=== PATIENT | male | born 1975 | race Caucasian/White ===

== ENCOUNTER 2017-01-04 23:48 | Inpatient (IN) ==
--- NOTE | 2017-01-05 09:49 | Internal Med History&Physical ---
Date of Encounter: 01/05/17 Time of Encounter: 09:46 Assessment and Plan (1) Toxic encephalopathy Status: Resolved Urine drug screen positive for cocaine and Amphetamines; however patient claims he cannot remember the last use; received IV hydration, IV Narcan drip and supportive care; currently at baseline mental status and medically stable; (2) IRISH (acute kidney injury) Status: Resolved Likely due to the use of cocaine along with dehydration. Serum creatinine noted to be improving with IV hydration. (3) Acute respiratory failure with hypoxia Status: Resolved Due to altered mental status and drug overdose. Noted to be improving. Continue supplemental oxygen and wean down FiO2 as tolerated. Chest x-ray shows no evidence of pneumonia. (4) Drug overdose Status: Acute Patient has known history of polysubstance abuse and possibly overdosed on cocaine and amphetamines yesterday. Improved mentation at this time. Qualifiers: Encounter type: subsequent encounter Injury intent: accidental or unintentional Qualified Code(s): T50.901D - Poisoning by unspecified drugs, medicaments and biological substances, accidental (unintentional), subsequent encounter Internal Medicine - H&P: HPI Chief complaint: Altered mental status, found unresponsive Admitted From: Emergency Dept Plans for Post Hospital Care: Home History of present illness: Mr. Wayne is a 41 year old male with no significant past medical history was brought in by the police, apparently after being found unresponsive in his car with recreational drugs around. Patient has been admitted to our ICU last night under a different identity (different name and date of ) and has been started on IV hydration, supplemental oxygen and supportive care. He is significantly improved today and reports his correct name and date of and is in generally oriented. He reports some sternal pain, likely due to sternal rubs last night. No shortness of breath, palpitations, dizziness, nausea or vomiting. Denies any further complaints and would like to be discharged. Patient was noted to have positive cocaine and methamphetamines on urine drug screen and he admits to using these, however continues to deny using them yesterday and cannot remember if he was driving yesterday and how he ended up in the hospital. Past Med Surg Social Fam HX - Past Medical History Medical history: no medical history, non-contributory Psychiatric history: no psych history - Past Surgical History Surgical History: sinus surgery - Social History Smoking Status: Current every day smoker Packs per day: 1/2 pack per day for atleast 30yrs Smokeless Tobacco Status: No Alcohol use: occasionally (at least 3 times/week) Drug use: cocaine, methamphetamine, IVDU (cocaine) Occupational status: unemployed Current living situation: Home Activity Level: Independent ambulation Recent Out of Country Travel Within the Last 8 Weeks: No Exposure or Possible Exposure to Illness During Travel: No - Family History Mother Cause of : cancer Hx Family Cancer: Yes (unknown primary) Grandfather Hx Family Cardiac Disorders: Yes Internal Medicine - H&P: Meds Fluconazole [Diflucan] 150 mg PO ONCE #2 tablet 10/13/15 [Rx] Mupirocin [Bactroban Oint] 22 gm TP BID #22 tube 10/13/15 [Rx] PredniSONE [Deltasone] 20 mg PO DAILY #12 tablet 10/13/15 [Rx] Allergies sulfamethoxazole [From Bactrim] Allergy (Verified 10/13/15 20:21) Rash trimethoprim [From Bactrim] Allergy (Verified 10/13/15 20:21) Rash All Systems PM: A 10-system review of systems was performed and is negative for pertinent findings except as documented above in the HPI. - Constitutional Constitutional: no chills, no fever(s), no night sweats - EENT Eyes: no change in vision, no discharge, no pain, no photophobia Ears: no ear discharge, no ear pain, no tinnitus Nose, mouth and throat: no dysphagia, no nasal discharge, no neck pain, no sore throat - Cardiovascular Cardiovascular ROS IM: chest pain (reproducible chest pain, likely from sternal rubs), no diaphoresis, no dyspnea, no lightheadedness, no palpitations, no syncope - Respiratory Respiratory: no cough, no dyspnea, no wheezing, no excessive phlegm production - Gastrointestinal Gastrointestinal: no abdominal pain, no diarrhea, no hematemesis, no hematochezia, no melena, no nausea, no vomiting - Musculoskeletal Musculoskeletal ROS IM: no numbness, no tingling - Integumentary Integumentary IM: no rash, no unusual bruising - Neurological Neurological ROS: memory loss, no confusion, no convulsions, no focal weakness, no numbness, no tingling, no tremor(s) - Hematologic/Lymphatic Hematologic/Lymphatic: no easy bruising - Constitutional General appearance: Present: A&O X 3, answers questions appropriately - Head Head exam: Present: atraumatic, normocephalic - Neck Neck exam general surgery: Present: supple, trachea midline. Absent: lymphadenopathy - Respiratory Respiratory exam: Present: CTAB. Absent: accessory muscle use, rales, rhonchi, wheezes - Cardiovascular Cardiovascular exam: Present: RRR, +S1, +S2. Absent: diastolic murmur, gallop, rubs, systolic murmur - GI/Abdominal GI/Abdominal exam: Present: normal bowel sounds, soft, no peritoneal signs. Absent: distended, tenderness - Extremities Exam Extremities exam: Present: full ROM, warm, radial pulses palpable and symetrical. Absent: calf tenderness, cyanotic, pedal edema - Neurological Exam Neurological exam: Present: CN II-XII intact, oriented X3 (not completely oriented to date and month but appropriate year, place and person), no focal deficits. Absent: pronater drift, facial droop, speech deficit - Skin Skin exam: Present: dry, intact Internal Med - H&P Results - Labs CBC & Chem 7: 01/04/17 23:58 01/05/17 02:56
--- NOTE | 2017-01-05 09:56 | Discharge Summary ---
Date of Encounter: 01/05/17 Time of Encounter: 09:54 - Discharge Diagnosis (1) Toxic encephalopathy Priority: Primary Status: Resolved (2) IRISH (acute kidney injury) Priority: Primary Status: Resolved (3) Acute respiratory failure with hypoxia Priority: Primary Status: Resolved (4) Drug overdose Priority: Primary Status: Acute Qualifiers: Encounter type: subsequent encounter Injury intent: accidental or unintentional Qualified Code(s): T50.901D - Poisoning by unspecified drugs, medicaments and biological substances, accidental (unintentional), subsequent encounter - Discharge Medications Home Medications: Fluconazole [Diflucan] 150 mg PO ONCE #2 tablet 10/13/15 [Rx] Mupirocin [Bactroban Oint] 22 gm TP BID #22 tube 10/13/15 [Rx] PredniSONE [Deltasone] 20 mg PO DAILY #12 tablet 10/13/15 [Rx] Allergies/Adverse Reactions: Allergies sulfamethoxazole [From Bactrim] Allergy (Verified 10/13/15 20:21) Rash trimethoprim [From Bactrim] Allergy (Verified 10/13/15 20:21) Rash Date of admission: 01/05/17 09:14 Primary care physician: PCP NO Discharging clinician: Anum Morrow Anticipated date of discharge: 01/05/17 - Patient Status Disposition: Home, Self-Care Condition: Good Functional capacity at discharge: independent ambulation Overall status at discharge: patient is progressing back to baseline - Discharge Instructions - Diet and Activity Activity: resume usual activities as tolerated Diet: low fat, low cholesterol Hospital course: Mr. Wayne is a 41 year old male with no significant past medical history except polysubstance abuse and no medical follow-up, was admitted after being found unresponsive with drugs around. Urine drug screen was positive for cocaine and amphetamines. He was started on aggressive IV hydration along with supplemental oxygen and IV Narcan drip. He was also noted to have acute kidney injury likely due to dehydration and use of illicit drugs; serum creatinine is noted to normalize this morning. He was also noted to have minimal troponin leak, likely cocaine induced. Telemetry monitoring showed no arrhythmias and repeat troponin shows no significant elevation. Patient's mental status is much improved and is back to baseline today and he denies any complaints. He remains hemodynamically stable and no longer requiring supplemental oxygen and he is medically stable for discharge. Time spent discussing smoking cessation with patient: 3 to 10 minutes (3 min) - Time Spent with Patient Total time spent providing and/or coordinating discharge services: Greater than 30 minutes (45 min) - Constitutional General appearance: Present: A&O X 3, answers questions appropriately - Respiratory Respiratory exam: Present: CTAB. Absent: accessory muscle use, rales, rhonchi, wheezes - Cardiovascular Cardiovascular exam: Present: RRR, +S1, +S2. Absent: diastolic murmur, gallop, rubs, systolic murmur
[2017-01-05 10:15] VITALS: BP 107/66
[2017-01-05] MEDS ORDERED: Thiamine (B-1) 100 MG TABLET PO ONE (12:14)
[2017-01-05] MEDS ORDERED: *HR* LORazepam 2 MG/ML VIAL IVP ONE (12:14)
[2017-01-05] MEDS ORDERED: Nystatin SUSP 5 ML UD.LIQ PO ONE (12:14)
[2017-01-05] MEDS ORDERED: Ipratropium/Albuterol Neb 3 ML AER ONE (12:14)
[2017-01-05] MEDS ORDERED: Sennosides 8.6 MG TABLET PO ONE (12:14)
[2017-01-05] MEDS ORDERED: Vitamin B Complex/Vit C/Vit E 1 EACH TABLET PO ONE (12:14)
[2017-01-05] MEDS ORDERED: *HR* Promethazine 25 MG/ML VIAL IV ONE (12:14)
[2017-01-05] MEDS ORDERED: Acetaminophen 650 MG RECTAL SUPP RC ONE (12:14)
[2017-01-05] MEDS ORDERED: Ondansetron 4 MG/2 ML VIAL IVP ONE (12:14)
[2017-01-05] MEDS ORDERED: Folic Acid 1 MG TABLET PO ONE (12:14)
[2017-01-05] MEDS ORDERED: Acetaminophen 325 MG TABLET PO ONE (12:14)
[2017-01-05] MEDS ORDERED: Metoclopramide 10 MG/2 ML VIAL IVP ONE (12:14)
[2017-01-05] MEDS ORDERED: 0.9 % Sodium Chloride 1,000 ML IV.SOLN IV ONE ×3 (12:14)
[2017-01-05] MEDS ORDERED: Pantoprazole 40 MG VIAL IVC ONE (12:14)
--- NOTE | 2017-01-05 16:47 | Electrocardiograph Report ---
[address] [address] Test Date: 2017-01-05 Pat Name: Xavier Wayne Department: 104 Room: 02 Gender: M Admitting Representative: OP : 1975 Requested By: Derek Rodriguez Order Number: [id number] Reading MD: Thi Hobbs Measurements Intervals [place] Rate: 81 P: 38 TX: 144 QRS: -12 QRSD: 88 T: 54 QT: 393 QTc: 430 Interpretive Statements SINUS RHYTHM V6 not suitable for interpretation Electronically Signed On 01-05-2017 16:45:58 EDT by Thi Hobbs
[2017-01-05 19:28] LABS: Hematocrit 51.1 % (37.5-50.1); Hemoglobin 17.4 g/dL (12.9-16.9); Mean Corpuscular HGB Conc 34.1 g/dL (31.6-35.5); Mean Corpuscular Hemoglobin 31.2 pg (28.0-33.3); Mean Corpuscular Volume 91.6 fL (83.0-100.0); Mean Platelet Volume 8.6 fL (9.4-12.4); Platelet Count 229 K/mcL (140-400); Red Blood Count 5.58 M/mcL (4.19-5.50); Red Cell Distribution Width 12.6 % (11.5-14.5)
[2017-01-05 19:29] LABS: Basophils % 0.3 %; Eosinophils # 0.1 K/mcL (0.0-0.6); Eosinophils % 0.5 %; Immature Granulocytes % 0.5 % (0-4); Lymphocytes # 0.7 K/mcL (0.6-4.6); Lymphocytes % 7.2 %; Monocytes # 0.3 K/mcL (0.0-1.3); Monocytes % 3.1 %; Neutrophils # 8.8 K/mcL (1.6-8.9); Segmented Neutrophils % 88.4 %
[2017-01-05 19:38] LABS: Activated Partial Thrombo Time 27.8 Seconds (26.0-36.0); INR 1.1; Prothrombin Time 12.3 Seconds (9.4-12.1)
[2017-01-05 19:42] LABS: Amphetamine Screen,Urine Positive ng/mL (Cutoff=1000); Barbiturate Screen,Urine Negative ng/mL (Cutoff=200); Benzodiazepines Screen,Urine Negative ng/mL (Cutoff=200); Cannabinoid Screen,Urine Negative ng/mL (Cutoff = 50); Cocaine Screen,Urine Positive ng/mL (Cutoff= 300); Opiate Screen,Urine Negative ng/mL (Cutoff=300); Phencyclidine Screen,Urine Negative ng/mL (Cutoff=25)
[2017-01-05 20:58] LABS: ABG PCO2 53 mmHg (35-45); ABG PO2 66 mmHg (85-104)
[2017-01-05 20:59] LABS: ABG Base Excess -1.4 mEq/L (-2.0 to 3.0); ABG HCO3 26.1 mEQ/L (21-27); ABG Oxygen Saturation 90 % (95-98); ABG TCO2 27.7 mEq/L (20-26); Blood Gas FiO2 100 %
[2017-01-05 21:14] LABS: Alkaline Phosphatase 58 Units/L (38-126); BUN/Creatinine Ratio 7 (6-26); Bilirubin,Direct 0.7 mg/dL (0.0-0.5); Bilirubin,Indirect 0.5 mg/dL (0.0-1.2); Bilirubin,Total 1.2 mg/dL (0.2-1.2); Blood Urea Nitrogen 13 mg/dL (8-26); Calcium 8.9 mg/dL (8.6-10.8); Carbon Dioxide 23 mEq/L (19-29); Chloride 99 mEq/L (98-109); Glucose 324 mg/dL (70-99); Osmolality,Calculated 297 (280-300); Potassium 3.6 mEq/L (3.5-4.5); Sodium 137 mEq/L (136-145); eGFR For African Americans 50 (> 60); eGFR For Non-African Americans 41 (> 60)
[2017-01-05 21:15] LABS: Acetaminophen < 1.0 mcg/mL (10-30); Alanine Aminotransferase 62 Units/L (0-55); Albumin 4.1 g/dL (3.5-5.0); Albumin/Globulin Ratio 1.1 (1.1-2.2); Aspartate Amino Transferase 57 Units/L (5-34); Creatine Kinase 269 Units/L (30-200); Ethanol < 10 mg/dL (0-10); Globulin 3.6 g/dL (2.4-3.5); Salicylate < 5.0 mg/dL (15-30); Total Protein 7.7 g/dL (6.0-8.3)
[2017-01-05 21:27] LABS: ABG Base Excess 0.9 mEq/L (-2.0 to 3.0); ABG HCO3 28.7 mEQ/L (21-27); ABG Oxygen Saturation 94 % (95-98); ABG PCO2 57 mmHg (35-45); ABG PH 7.31 pH Units (7.32-7.45); ABG PO2 77 mmHg (85-104); ABG TCO2 30.4 mEq/L (20-26); Blood Gas FiO2 28 %
[2017-01-05 21:38] LABS: BUN/Creatinine Ratio 10 (6-26); Bilirubin,Total 1.3 mg/dL (0.2-1.2); Blood Urea Nitrogen 13 mg/dL (8-26); Carbon Dioxide 24 mEq/L (19-29); Chloride 105 mEq/L (98-109); Glucose 73 mg/dL (70-99); Magnesium 2.4 mg/dL (1.6-2.6); Osmolality,Calculated 291 (280-300); Phosphorous 3.6 mg/dL (2.3-4.7); Potassium 3.5 mEq/L (3.5-4.5); Sodium 141 mEq/L (136-145); eGFR For African Americans > 60 (> 60); eGFR For Non-African Americans > 60 (> 60)
[2017-01-05 21:39] LABS: Alanine Aminotransferase 57 Units/L (0-55); Albumin 4.1 g/dL (3.5-5.0); Albumin/Globulin Ratio 1.4 (1.1-2.2); Alkaline Phosphatase 53 Units/L (38-126); Aspartate Amino Transferase 50 Units/L (5-34); Bilirubin,Direct 0.9 mg/dL (0.0-0.5); Bilirubin,Indirect 0.4 mg/dL (0.0-1.2); Total Protein 7.1 g/dL (6.0-8.3)
--- NOTE | 2017-01-12 11:11 | Emergency Department Note ---
Disposition Clinical Impression: Acute kidney injury, Lactic acid acidosis Overdose Qualifiers: Encounter type: initial encounter Injury intent: accidental or unintentional Qualified Code(s): T50.901A - Poisoning by unspecified drugs, medicaments and biological substances, accidental (unintentional), initial encounter Altered mental status Qualifiers: Altered mental status type: unspecified Qualified Code(s): R41.82 - Altered mental status, unspecified Disposition: Admitted As Inpatient Condition: Good Time of Disposition: 13:02 General Adult HPI - General Chief complaint: ED Overdose Source: EMS - History of Present Illness Pain Scale: 0 - Related Data Previous Rx's Medication Instructions Recorded Fluconazole [Diflucan] 150 mg PO ONCE #2 tablet 10/13/15 Mupirocin [Bactroban Oint] 22 gm TP BID #22 tube 10/13/15 PredniSONE [Deltasone] 20 mg PO DAILY #12 tablet 10/13/15 Allergies Allergy/AdvReac Type Severity Reaction Status Date / Time sulfamethoxazole Allergy Rash Verified 10/13/15 20:21 [From Bactrim] trimethoprim [From Bactrim] Allergy Rash Verified 10/13/15 20:21 Past Medical History - Past Medical History Medical history: Reports: no medical history, non-contributory Surgical history: Reports: sinus surgery Psychiatric history: Reports: no psych history - Social History Smoking Status: Current every day smoker Smokeless Tobacco Status: No Alcohol use: Reports: occasionally (at least 3 times/week) Drug use: Reports: cocaine, methamphetamine, IVDU (cocaine) Physical Exam - General General appearance: lethargic Course Vital Signs Temperature 97.3 F L 01/04/17 23:49 Pulse Rate 80 01/04/17 23:49 Respiratory Rate 18 01/04/17 23:49 Blood Pressure 107/66 01/04/17 23:49 O2 Sat by Pulse Oximetry 99 01/04/17 23:49 Temperature 97.3 F L 01/05/17 10:00 Pulse Rate 80 01/05/17 10:00 Respiratory Rate 18 01/05/17 10:00 Blood Pressure 107/66 01/05/17 10:00 O2 Sat by Pulse Oximetry 99 01/05/17 10:00 Oxygen Delivery Oxygen Delivery Non Rebreather Mask Medical Decision Making - Lab Data Result diagrams: 01/04/17 23:58 01/05/17 02:56 Lab Results 01/04/17 01/04/17 01/04/17 Range/Units 23:54 23:55 23:55 WBC (4.3-11.1) K/mcL RBC (4.19-5.50) M/mcL Hgb (12.9-16.9) g/dL Hct (37.5-50.1) % MCV (83.0-100.0) fL MCH (28.0-33.3) pg MCHC (31.6-35.5) g/dL RDW (11.5-14.5) % Plt Count (140-400) K/mcL MPV (9.4-12.4) fL Immature Gran % (0-4) % Seg Neutrophils % % Lymphocytes % % Monocytes % % Eosinophils % % Basophils % % Neutrophils # (1.6-8.9) K/mcL Lymphocytes # (0.6-4.6) K/mcL Monocytes # (0.0-1.3) K/mcL Eosinophils # (0.0-0.6) K/mcL Basophils # (0.0-0.2) K/mcL PT (9.4-12.1) Seconds INR APTT (26.0-36.0) Seconds ABG pH 7.30 L (7.32-7.45) pH Units ABG pCO2 53 H (35-45) mmHg ABG pO2 66 L (85-104) mmHg ABG HCO3 26.1 (21-27) mEQ/L ABG Total CO2 27.7 H (20-26) mEq/L ABG O2 Saturation 90 L (95-98) % ABG Base Excess -1.4 (-2.0 to 3.0) mEq/L Blood Gas Modality NRB Inspired O2 100 % Sodium (136-145) mEq/L Potassium (3.5-4.5) mEq/L Chloride (98-109) mEq/L Carbon Dioxide (19-29) mEq/L BUN (8-26) mg/dL Creatinine (0.72-1.25) mg/dL Est GFR ( Amer) (> 60) Est GFR (Non-Af Amer) (> 60) BUN/Creatinine Ratio (6-26) Glucose (70-99) mg/dL POC Glucose (58-89) Calculated Osmolality (280-300) Lactic Acid 4.2 H* (0.5-2.2) mmol/L Calcium (8.6-10.8) mg/dL Total Bilirubin (0.2-1.2) mg/dL Direct Bilirubin (0.0-0.5) mg/dL Indirect Bilirubin (0.0-1.2) mg/dL AST (5-34) Units/L ALT (0-55) Units/L Alkaline Phosphatase (38-126) Units/L Creatine Kinase (30-200) Units/L Serum Total Protein (6.0-8.3) g/dL Albumin (3.5-5.0) g/dL Globulin (2.4-3.5) g/dL Albumin/Globulin Ratio (1.1-2.2) Procalcitonin 0.28 H (<=0.10) ng/mL Salicylates (15-30) mg/dL Urine Opiates Screen (Zoggtt=557) ng/mL Acetaminophen (10-30) mcg/mL Ur Barbiturates Screen (Iekutw=951) ng/mL Ur Phencyclidine Scrn (Cutoff=25) ng/mL Ur Amphetamines Screen (Dtgzke=4328) ng/mL U Benzodiazepines Scrn (Kquqqm=390) ng/mL Urine Cocaine Screen (Cutoff= 300) ng/mL U Marijuana (THC) Screen (Cutoff = 50) ng/mL Ethyl Alcohol (0-10) mg/dL 01/04/17 01/04/17 01/04/17 Range/Units 23:58 23:58 23:58 WBC 9.9 (4.3-11.1) K/mcL RBC 5.58 H (4.19-5.50) M/mcL Hgb 17.4 H (12.9-16.9) g/dL Hct 51.1 H (37.5-50.1) % MCV 91.6 (83.0-100.0) fL MCH 31.2 (28.0-33.3) pg MCHC 34.1 (31.6-35.5) g/dL RDW 12.6 (11.5-14.5) % Plt Count 229 (140-400) K/mcL MPV 8.6 L (9.4-12.4) fL Immature Gran % 0.5 (0-4) % Seg Neutrophils % 88.4 % Lymphocytes % 7.2 % Monocytes % 3.1 % Eosinophils % 0.5 % Basophils % 0.3 % Neutrophils # 8.8 (1.6-8.9) K/mcL Lymphocytes # 0.7 (0.6-4.6) K/mcL Monocytes # 0.3 (0.0-1.3) K/mcL Eosinophils # 0.1 (0.0-0.6) K/mcL Basophils # 0.0 (0.0-0.2) K/mcL PT 12.3 H (9.4-12.1) Seconds INR 1.1 APTT 27.8 (26.0-36.0) Seconds ABG pH (7.32-7.45) pH Units ABG pCO2 (35-45) mmHg ABG pO2 (85-104) mmHg ABG HCO3 (21-27) mEQ/L ABG Total CO2 (20-26) mEq/L ABG O2 Saturation (95-98) % ABG Base Excess (-2.0 to 3.0) mEq/L Blood Gas Modality Inspired O2 % Sodium 137 (136-145) mEq/L Potassium 3.6 (3.5-4.5) mEq/L Chloride 99 (98-109) mEq/L Carbon Dioxide 23 (19-29) mEq/L BUN 13 (8-26) mg/dL Creatinine 1.80 H (0.72-1.25) mg/dL Est GFR ( Amer) 50 L (> 60) Est GFR (Non-Af Amer) 41 L (> 60) BUN/Creatinine Ratio 7 (6-26) Glucose 324 H (70-99) mg/dL POC Glucose (58-89) Calculated Osmolality 297 (280-300) Lactic Acid (0.5-2.2) mmol/L Calcium 8.9 (8.6-10.8) mg/dL Total Bilirubin 1.2 (0.2-1.2) mg/dL Direct Bilirubin 0.7 H (0.0-0.5) mg/dL Indirect Bilirubin 0.5 (0.0-1.2) mg/dL AST 57 H (5-34) Units/L ALT 62 H (0-55) Units/L Alkaline Phosphatase 58 (38-126) Units/L Creatine Kinase 269 H (30-200) Units/L Serum Total Protein 7.7 (6.0-8.3) g/dL Albumin 4.1 (3.5-5.0) g/dL Globulin 3.6 H (2.4-3.5) g/dL Albumin/Globulin Ratio 1.1 (1.1-2.2) Procalcitonin (<=0.10) ng/mL Salicylates < 5.0 L (15-30) mg/dL Urine Opiates Screen (Eiscfz=304) ng/mL Acetaminophen < 1.0 L (10-30) mcg/mL Ur Barbiturates Screen (Gxllvc=861) ng/mL Ur Phencyclidine Scrn (Cutoff=25) ng/mL Ur Amphetamines Screen (Nirxcf=9895) ng/mL U Benzodiazepines Scrn (Saiqcc=503) ng/mL Urine Cocaine Screen (Cutoff= 300) ng/mL U Marijuana (THC) Screen (Cutoff = 50) ng/mL Ethyl Alcohol < 10 (0-10) mg/dL 01/04/17 01/05/17 Range/Units 23:58 00:00 WBC (4.3-11.1) K/mcL RBC (4.19-5.50) M/mcL Hgb (12.9-16.9) g/dL Hct (37.5-50.1) % MCV (83.0-100.0) fL MCH (28.0-33.3) pg MCHC (31.6-35.5) g/dL RDW (11.5-14.5) % Plt Count (140-400) K/mcL MPV (9.4-12.4) fL Immature Gran % (0-4) % Seg Neutrophils % % Lymphocytes % % Monocytes % % Eosinophils % % Basophils % % Neutrophils # (1.6-8.9) K/mcL Lymphocytes # (0.6-4.6) K/mcL Monocytes # (0.0-1.3) K/mcL Eosinophils # (0.0-0.6) K/mcL Basophils # (0.0-0.2) K/mcL PT (9.4-12.1) Seconds INR APTT (26.0-36.0) Seconds ABG pH (7.32-7.45) pH Units ABG pCO2 (35-45) mmHg ABG pO2 (85-104) mmHg ABG HCO3 (21-27) mEQ/L ABG Total CO2 (20-26) mEq/L ABG O2 Saturation (95-98) % ABG Base Excess (-2.0 to 3.0) mEq/L Blood Gas Modality Inspired O2 % Sodium (136-145) mEq/L Potassium (3.5-4.5) mEq/L Chloride (98-109) mEq/L Carbon Dioxide (19-29) mEq/L BUN (8-26) mg/dL Creatinine (0.72-1.25) mg/dL Est GFR ( Amer) (> 60) Est GFR (Non-Af Amer) (> 60) BUN/Creatinine Ratio (6-26) Glucose (70-99) mg/dL POC Glucose 276 H (58-89) Calculated Osmolality (280-300) Lactic Acid (0.5-2.2) mmol/L Calcium (8.6-10.8) mg/dL Total Bilirubin (0.2-1.2) mg/dL Direct Bilirubin (0.0-0.5) mg/dL Indirect Bilirubin (0.0-1.2) mg/dL AST (5-34) Units/L ALT (0-55) Units/L Alkaline Phosphatase (38-126) Units/L Creatine Kinase (30-200) Units/L Serum Total Protein (6.0-8.3) g/dL Albumin (3.5-5.0) g/dL Globulin (2.4-3.5) g/dL Albumin/Globulin Ratio (1.1-2.2) Procalcitonin (<=0.10) ng/mL Salicylates (15-30) mg/dL Urine Opiates Screen Negative (Qjigtx=820) ng/mL Acetaminophen (10-30) mcg/mL Ur Barbiturates Screen Negative (Vtbhjh=664) ng/mL Ur Phencyclidine Scrn Negative (Cutoff=25) ng/mL Ur Amphetamines Screen Positive H (Fpgdiz=3955) ng/mL U Benzodiazepines Scrn Negative (Eepdhp=029) ng/mL Urine Cocaine Screen Positive H (Cutoff= 300) ng/mL U Marijuana (THC) Screen Negative (Cutoff = 50) ng/mL Ethyl Alcohol (0-10) mg/dL Attestation Statement - Attestation Attestation: I examined this patient and my medical decision-making was reviewed with the COMMUNITY NUTRITION EDUCATOR/PA/Advanced Practice Nurse/Resident Physician. I agree with the documented findings, disposition and treatment plan as described except to the extent set forth below. Face to face time provided in conjunction with the resident physician Dr. Bustamante Patient presents via EMS after a suspected overdose. The patient is somnolent at the time of my exam he is responsive to painful stimuli. Etiology of overdose uncertain. Patient unable to convey any meaningful history The initial documentation entry was made on the wrong patient on . This correct documentation is being placed on 01/12/17. Critical care time of 45 mins requested
--- NOTE | 2017-01-15 20:45 | Emergency Department Note ---
Overdose - Medical Records Medical records reviewed: Yes I reviewed the patient's medical records. - Lab Data Lab results reviewed: Yes I reviewed the patient's lab results. Result diagrams: 01/04/17 23:58 01/05/17 02:56 Lab Results 01/04/17 01/04/17 01/04/17 Range/Units 23:54 23:55 23:55 WBC (4.3-11.1) K/mcL RBC (4.19-5.50) M/mcL Hgb (12.9-16.9) g/dL Hct (37.5-50.1) % MCV (83.0-100.0) fL MCH (28.0-33.3) pg MCHC (31.6-35.5) g/dL RDW (11.5-14.5) % Plt Count (140-400) K/mcL MPV (9.4-12.4) fL Immature Gran % (0-4) % Seg Neutrophils % % Lymphocytes % % Monocytes % % Eosinophils % % Basophils % % Neutrophils # (1.6-8.9) K/mcL Lymphocytes # (0.6-4.6) K/mcL Monocytes # (0.0-1.3) K/mcL Eosinophils # (0.0-0.6) K/mcL Basophils # (0.0-0.2) K/mcL PT (9.4-12.1) Seconds INR APTT (26.0-36.0) Seconds ABG pH 7.30 L (7.32-7.45) pH Units ABG pCO2 53 H (35-45) mmHg ABG pO2 66 L (85-104) mmHg ABG HCO3 26.1 (21-27) mEQ/L ABG Total CO2 27.7 H (20-26) mEq/L ABG O2 Saturation 90 L (95-98) % ABG Base Excess -1.4 (-2.0 to 3.0) mEq/L Blood Gas Modality NRB Inspired O2 100 % Sodium (136-145) mEq/L Potassium (3.5-4.5) mEq/L Chloride (98-109) mEq/L Carbon Dioxide (19-29) mEq/L BUN (8-26) mg/dL Creatinine (0.72-1.25) mg/dL Est GFR ( Amer) (> 60) Est GFR (Non-Af Amer) (> 60) BUN/Creatinine Ratio (6-26) Glucose (70-99) mg/dL POC Glucose (58-89) Calculated Osmolality (280-300) Lactic Acid 4.2 H* (0.5-2.2) mmol/L Calcium (8.6-10.8) mg/dL Total Bilirubin (0.2-1.2) mg/dL Direct Bilirubin (0.0-0.5) mg/dL Indirect Bilirubin (0.0-1.2) mg/dL AST (5-34) Units/L ALT (0-55) Units/L Alkaline Phosphatase (38-126) Units/L Creatine Kinase (30-200) Units/L Serum Total Protein (6.0-8.3) g/dL Albumin (3.5-5.0) g/dL Globulin (2.4-3.5) g/dL Albumin/Globulin Ratio (1.1-2.2) Procalcitonin 0.28 H (<=0.10) ng/mL Salicylates (15-30) mg/dL Urine Opiates Screen (Ifuixa=950) ng/mL Acetaminophen (10-30) mcg/mL Ur Barbiturates Screen (Yeijyg=767) ng/mL Ur Phencyclidine Scrn (Cutoff=25) ng/mL Ur Amphetamines Screen (Birfeg=8647) ng/mL U Benzodiazepines Scrn (Nssrpw=048) ng/mL Urine Cocaine Screen (Cutoff= 300) ng/mL U Marijuana (THC) Screen (Cutoff = 50) ng/mL Ethyl Alcohol (0-10) mg/dL 01/04/17 01/04/17 01/04/17 Range/Units 23:58 23:58 23:58 WBC 9.9 (4.3-11.1) K/mcL RBC 5.58 H (4.19-5.50) M/mcL Hgb 17.4 H (12.9-16.9) g/dL Hct 51.1 H (37.5-50.1) % MCV 91.6 (83.0-100.0) fL MCH 31.2 (28.0-33.3) pg MCHC 34.1 (31.6-35.5) g/dL RDW 12.6 (11.5-14.5) % Plt Count 229 (140-400) K/mcL MPV 8.6 L (9.4-12.4) fL Immature Gran % 0.5 (0-4) % Seg Neutrophils % 88.4 % Lymphocytes % 7.2 % Monocytes % 3.1 % Eosinophils % 0.5 % Basophils % 0.3 % Neutrophils # 8.8 (1.6-8.9) K/mcL Lymphocytes # 0.7 (0.6-4.6) K/mcL Monocytes # 0.3 (0.0-1.3) K/mcL Eosinophils # 0.1 (0.0-0.6) K/mcL Basophils # 0.0 (0.0-0.2) K/mcL PT 12.3 H (9.4-12.1) Seconds INR 1.1 APTT 27.8 (26.0-36.0) Seconds ABG pH (7.32-7.45) pH Units ABG pCO2 (35-45) mmHg ABG pO2 (85-104) mmHg ABG HCO3 (21-27) mEQ/L ABG Total CO2 (20-26) mEq/L ABG O2 Saturation (95-98) % ABG Base Excess (-2.0 to 3.0) mEq/L Blood Gas Modality Inspired O2 % Sodium 137 (136-145) mEq/L Potassium 3.6 (3.5-4.5) mEq/L Chloride 99 (98-109) mEq/L Carbon Dioxide 23 (19-29) mEq/L BUN 13 (8-26) mg/dL Creatinine 1.80 H (0.72-1.25) mg/dL Est GFR ( Amer) 50 L (> 60) Est GFR (Non-Af Amer) 41 L (> 60) BUN/Creatinine Ratio 7 (6-26) Glucose 324 H (70-99) mg/dL POC Glucose (58-89) Calculated Osmolality 297 (280-300) Lactic Acid (0.5-2.2) mmol/L Calcium 8.9 (8.6-10.8) mg/dL Total Bilirubin 1.2 (0.2-1.2) mg/dL Direct Bilirubin 0.7 H (0.0-0.5) mg/dL Indirect Bilirubin 0.5 (0.0-1.2) mg/dL AST 57 H (5-34) Units/L ALT 62 H (0-55) Units/L Alkaline Phosphatase 58 (38-126) Units/L Creatine Kinase 269 H (30-200) Units/L Serum Total Protein 7.7 (6.0-8.3) g/dL Albumin 4.1 (3.5-5.0) g/dL Globulin 3.6 H (2.4-3.5) g/dL Albumin/Globulin Ratio 1.1 (1.1-2.2) Procalcitonin (<=0.10) ng/mL Salicylates < 5.0 L (15-30) mg/dL Urine Opiates Screen (Xtshse=424) ng/mL Acetaminophen < 1.0 L (10-30) mcg/mL Ur Barbiturates Screen (Cdrcqk=318) ng/mL Ur Phencyclidine Scrn (Cutoff=25) ng/mL Ur Amphetamines Screen (Nmnlvu=6240) ng/mL U Benzodiazepines Scrn (Gqpgfo=659) ng/mL Urine Cocaine Screen (Cutoff= 300) ng/mL U Marijuana (THC) Screen (Cutoff = 50) ng/mL Ethyl Alcohol < 10 (0-10) mg/dL 01/04/17 01/05/17 Range/Units 23:58 00:00 WBC (4.3-11.1) K/mcL RBC (4.19-5.50) M/mcL Hgb (12.9-16.9) g/dL Hct (37.5-50.1) % MCV (83.0-100.0) fL MCH (28.0-33.3) pg MCHC (31.6-35.5) g/dL RDW (11.5-14.5) % Plt Count (140-400) K/mcL MPV (9.4-12.4) fL Immature Gran % (0-4) % Seg Neutrophils % % Lymphocytes % % Monocytes % % Eosinophils % % Basophils % % Neutrophils # (1.6-8.9) K/mcL Lymphocytes # (0.6-4.6) K/mcL Monocytes # (0.0-1.3) K/mcL Eosinophils # (0.0-0.6) K/mcL Basophils # (0.0-0.2) K/mcL PT (9.4-12.1) Seconds INR APTT (26.0-36.0) Seconds ABG pH (7.32-7.45) pH Units ABG pCO2 (35-45) mmHg ABG pO2 (85-104) mmHg ABG HCO3 (21-27) mEQ/L ABG Total CO2 (20-26) mEq/L ABG O2 Saturation (95-98) % ABG Base Excess (-2.0 to 3.0) mEq/L Blood Gas Modality Inspired O2 % Sodium (136-145) mEq/L Potassium (3.5-4.5) mEq/L Chloride (98-109) mEq/L Carbon Dioxide (19-29) mEq/L BUN (8-26) mg/dL Creatinine (0.72-1.25) mg/dL Est GFR ( Amer) (> 60) Est GFR (Non-Af Amer) (> 60) BUN/Creatinine Ratio (6-26) Glucose (70-99) mg/dL POC Glucose 276 H (58-89) Calculated Osmolality (280-300) Lactic Acid (0.5-2.2) mmol/L Calcium (8.6-10.8) mg/dL Total Bilirubin (0.2-1.2) mg/dL Direct Bilirubin (0.0-0.5) mg/dL Indirect Bilirubin (0.0-1.2) mg/dL AST (5-34) Units/L ALT (0-55) Units/L Alkaline Phosphatase (38-126) Units/L Creatine Kinase (30-200) Units/L Serum Total Protein (6.0-8.3) g/dL Albumin (3.5-5.0) g/dL Globulin (2.4-3.5) g/dL Albumin/Globulin Ratio (1.1-2.2) Procalcitonin (<=0.10) ng/mL Salicylates (15-30) mg/dL Urine Opiates Screen Negative (Wjlgkl=978) ng/mL Acetaminophen (10-30) mcg/mL Ur Barbiturates Screen Negative (Odehzj=736) ng/mL Ur Phencyclidine Scrn Negative (Cutoff=25) ng/mL Ur Amphetamines Screen Positive H (Xmrbul=9469) ng/mL U Benzodiazepines Scrn Negative (Eccwgg=416) ng/mL Urine Cocaine Screen Positive H (Cutoff= 300) ng/mL U Marijuana (THC) Screen Negative (Cutoff = 50) ng/mL Ethyl Alcohol (0-10) mg/dL - Radiology Data Radiology results reviewed: Yes I reviewed the patient's radiology results. - EKG Data EKG attestation: Yes I reviewed and interpreted this EKG. EKG results narrative: Sinus rhythm, rate 81, AK interval 144, QRS 88, QTC 4:30, left axis deviation, no ischemic changes Overdose HPI - General Chief Complaint: ED Overdose Source: EMS - History of Present Illness HPI Narrative: Please note that this is a medical record that was transcribed from a previous record. This patient arrived to the emergency department and was originally registered and admitted under a separate name. His medical record number and name was corrected and it was requested that we redocument the patient under the correct patient name. The history of present illness, review of systems, physical exam and emergency department course will be transcribed to the best my ability and small grammatical or typographical errors may be corrected. Patient brought in via EMS after an unknown overdose. Patient is a known drug user. (previous typo as nondrug user) was called by an anonymous person. Found (not family) unresponsive. EMS reports patient has been known to use crack cocaine and found drug paraphernalia on his person. Also had alcohol in his back seat unknown time of ingestion reports upon arrival, patient was unresponsive with pinpoint pupils. Had 6 mg of intranasal Narcan and 2 mg of IV Narcan, which he responded to very well and began breathing again. Also placed a nasal trumpet. Initial sats were 87%. - Related Data Previous Rx's Medication Instructions Recorded Fluconazole [Diflucan] 150 mg PO ONCE #2 tablet 10/13/15 Mupirocin [Bactroban Oint] 22 gm TP BID #22 tube 10/13/15 PredniSONE [Deltasone] 20 mg PO DAILY #12 tablet 10/13/15 Allergies Allergy/AdvReac Type Severity Reaction Status Date / Time sulfamethoxazole Allergy Rash Verified 10/13/15 20:21 [From Bactrim] trimethoprim [From Bactrim] Allergy Rash Verified 10/13/15 20:21 Limitations: ROS unobtainable due to patients medical condition Past Medical History - Past Medical History Medical history: Reports: no medical history, non-contributory Surgical history: Reports: sinus surgery Psychiatric history: Reports: no psych history - Social History Smoking Status: Current every day smoker Smokeless Tobacco Status: No Alcohol use: Reports: occasionally (at least 3 times/week) Drug use: Reports: cocaine, methamphetamine, IVDU (cocaine) Physical Exam - General Limitations: altered mental status General appearance: lethargic, other (Agitated) - Head Head exam: atraumatic, normocephalic, normal inspection - Eye Eye exam: Present: normal appearance, PERRL, EOMI. Absent: miosis, mydriasis - ENT ENT exam: mucous membranes moist - Respiratory Respiratory exam: Present: other (Course breath sounds bilaterally). Absent: normal lung sounds bilaterally, respiratory distress - Cardiovascular Cardiovascular exam: Present: normal rhythm, tachycardia - Abdominal Exam Abdominal exam: Present: soft - Male exam: Present: normal inspection - Extremities Exam Extremities exam: Present: normal inspection, full ROM. Absent: pedal edema - Expanded Lower Extremity Exam Hip/Pelvis exam: Present: pelvis stable - Neurological Exam Neurological exam: Absent: oriented X3 - Expanded Neurological Exam Patient oriented to: Absent: person, place, time Motor strength - LUE: 5/5 Motor strength - RUE: 5/5 Motor strength - LLE: 5/5 Motor strength - RLE: 5/5 Other motor function: Moving all extremities spontaneously Coma Scale Eye Opening: To Voice Coma Scale Motor Response: Localizes to Pain Coma Scale Verbal Response: Incomprehensible Coma Scale Total: 10 - Psychiatric Psychiatric exam: Present: agitated - Skin Skin exam: Present: intact, normal color, diaphoresis Course Course Narrative: 29-year-old male presenting after an unknown overdose, suspected crack cocaine. Not following commands, GCS 10 or 11. Breathing spontaneously maintaining sats on nonrebreather and nasal trumpet. Labs pending. Will need admission. Vital Signs Temperature 97.3 F L 01/04/17 23:49 Pulse Rate 80 01/04/17 23:49 Respiratory Rate 18 01/04/17 23:49 Blood Pressure 107/66 01/04/17 23:49 O2 Sat by Pulse Oximetry 99 01/04/17 23:49 Temperature 97.3 F L 01/05/17 10:00 Pulse Rate 80 01/05/17 10:00 Respiratory Rate 18 01/05/17 10:00 Blood Pressure 107/66 01/05/17 10:00 O2 Sat by Pulse Oximetry 99 01/05/17 10:00 Oxygen Delivery Oxygen Delivery Non Rebreather Mask Disposition Clinical Impression: Acute kidney injury, Lactic acid acidosis Overdose Qualifiers: Encounter type: initial encounter Injury intent: accidental or unintentional Qualified Code(s): T50.901A - Poisoning by unspecified drugs, medicaments and biological substances, accidental (unintentional), initial encounter Altered mental status Qualifiers: Altered mental status type: unspecified Qualified Code(s): R41.82 - Altered mental status, unspecified Disposition: Admitted As Inpatient Condition: Fair Time of Disposition: 01:28
== END 2017-01-05 12:15 | disposition home or self-care (01) | DRG 812 ==
LOC: EMEROO 01-05 00:14 → ICNU 01-05 01:40 → UNDODISIN 01-05 12:15 → EDSTATUS 01-05 12:23
PROVIDERS: ADMIT Internal Medicine; ATTEND Internal Medicine Pulmonary Disease